=== PATIENT | male | born 1975 | race African-American/Black ===

== ENCOUNTER 2020-05-21 10:36 | Observation (INO) ==
[2020-05-21] MEDS ORDERED: hydrALAZINE 20 MG/1 ML VIAL IV STA (10:58)
[2020-05-21 11:17] LABS: Basophils % 0.4 % (0.0-0.8); Eosinophils # 0.1 10*3/uL (0.0-0.87); Eosinophils % 0.7 % (0.00-10.9); Hematocrit 37.2 VOL% (42.0-52.0); Hemoglobin 12.2 GM/DL (14.0-18.0); Immature Granulocytes % 0.4 %; Immature Granulocytes Absolute 0.03 #; Lymphocytes # 2.3 10*3/uL (1.4-4.0); Lymphocytes % 26.8 % (21.2-54.2); Mean Corpuscular HGB Conc 32.8 GM/DL (32-36); Mean Platelet Volume 9.6 FL (9.6-12.0); Neutrophils % 63.7 % (38.7-73.9); Platelet Count 298 T/CUMM (130-400); Red Cell Distribution Width 13.1 % (9.3-17.3); White Blood Count 8.5 T/CUMM (4-12)
[2020-05-21 11:30] LABS: PT Patient Result 10.3 SECS (9.8-11.9); Partial Thromboplastin Time 32.1 SECS (23.9-33.8)
[2020-05-21 11:43] LABS: Alanine Aminotransferase 30 U/L (16-61); Alkaline Phosphatase 102 U/L (45-117); Aspartate Amino Transferase 25 U/L (0-37); Bilirubin,Total < 0.39 MG/DL (0.2-1.0); Blood Urea Nitrogen 9 MG/DL (7-18); Calcium 8.2 MG/DL (8.5-10.1); Estimated Glom Filtration Rate 158 ML/MIN; Ferritin 50.9 ng/ml (26-388); Glucose 107 MG/DL (74-106); Osmolality,Calculated 271.8 MOS/KG (273-304); Total Protein 6.9 G/DL (6.4-8.3); Troponin I < 0.015 NG/ML (0.00-0.045)
[2020-05-21 12:40] LABS: Apearance,Urine CLEAR (Clear); Bilirubin,Urine Negative (Negative); Blood, Urine Negative (Negative); Glucose,Urine (UA) Negative (Negative); Ketones,Urine Negative (Negative); Nitrite,Urine Negative (Negative); Protein,Urine Negative; RBC,Urine <1 /HPF (0-4); Urine Color Yellow (Yellow); Urine Specific Gravity 1.009 (1.001-1.035); Urine Urobilinogen < 2.0 EU/DL (0.2-1.0); WBC,Urine <1 /HPF (0-6)
[2020-05-21] MEDS ORDERED: MAGNESIUM SULF RIDER 4 GM in PREMIX 1 EACH IV PRN (12:46)
[2020-05-21] MEDS ORDERED: ONDANSETRON 4 MG/2 ML VIAL IV PRN (12:46)
[2020-05-21] MEDS ORDERED: diphenhydrAMINE CAP 25 MG CAPSULE PO PRN (12:46)
[2020-05-21] MEDS ORDERED: ALUMINUM/MAGNES/SIMETH MAX STR 30 ML UDCUP PO PRN (12:46)
[2020-05-21] MEDS ORDERED: ZALEPLON 5 MG CAPSULE PO PRN (12:46)
[2020-05-21] MEDS ORDERED: MAGNESIUM SULF RIDER 2 GM in PREMIX 1 EACH IV PRN (12:46)
[2020-05-21] MEDS ORDERED: POTASSIUM CHLORIDE 20 MEQ TABLET PO PRN (12:46)
[2020-05-21 12:49] LABS: Barbiturates Screen,Urine Negative (Negative); Benzodiazepines Screen,Urine Negative (Negative); Cannabinoid Screen,Urine Negative (Negative); Opiate Screen,Urine Negative (Negative); Phencyclidine Screen,Urine Negative (Negative)
[2020-05-21] MEDS ORDERED: CLORAZEPATE 3.75 MG TABLET PO PRN (12:50)
[2020-05-21] MEDS ORDERED: ALBUTEROL 2.5 MG/3 ML NEB RESP TX PRN (12:50)
[2020-05-21] MEDS ORDERED: FUROSEMIDE 40 MG TABLET PO PRN (12:50)
[2020-05-21] MEDS ORDERED: GLUCAGON 1 MG VIAL IM PRN (12:52)
[2020-05-21] MEDS ORDERED: DEXTROSE 50% 25 GM/50 ML VIAL IV PRN (12:52)
[2020-05-21] MEDS: AMIODARONE 200 MG TABLET PO SCH ×2 (15:25→21:06)
[2020-05-21] MEDS: INSULIN REGULAR 100 UNIT/ML SUBCUT SCH ×2 (15:50→21:03)
[2020-05-21] MEDS ORDERED: ENOXAPARIN 40 MG/0.4 ML SYRINGE SUBCUT SCH (16:00)
[2020-05-21] MEDS: metFORMIN 500 MG TABLET PO SCH (16:30)
[2020-05-21] MEDS ORDERED: AMITRIPTYLINE 25 MG TABLET PO SCH (21:00)
[2020-05-21] MEDS: busPIRone 10 MG TABLET PO SCH (21:06)
[2020-05-21] MEDS: SACUBITRIL/VALSARTAN 49-51 MG TABLET PO SCH (21:06)
[2020-05-21] MEDS: ASCORBIC ACID 500 MG TABLET PO SCH (21:07)
[2020-05-21] MEDS: MOMETASONE/FORMOTEROL 200-5 INHALER 8.8 GM INH SCH (21:07)
[2020-05-22 06:15] LABS: Basophils % 0.3 % (0.0-0.8); Eosinophils # 0.1 10*3/uL (0.0-0.87); Eosinophils % 0.8 % (0.00-10.9); Hemoglobin 11.7 GM/DL (14.0-18.0); Immature Granulocytes % 0.4 %; Immature Granulocytes Absolute 0.03 #; Lymphocytes # 2.5 10*3/uL (1.4-4.0); Mean Corpuscular HGB Conc 31.6 GM/DL (32-36); Mean Corpuscular Volume 93.4 FL (87-102); Mean Platelet Volume 10.1 FL (9.6-12.0); Neutrophils % 59.5 % (38.7-73.9); Platelet Count 304 T/CUMM (130-400); Red Blood Count 3.96 MC/CUMM (3.8-5.5); Red Cell Distribution Width 13.2 % (9.3-17.3)
[2020-05-22 06:39] LABS: Calcium 8.5 MG/DL (8.5-10.1); Osmolality,Calculated 273.7 MOS/KG (273-304)
[2020-05-22 06:44] LABS: Albumin 3.1 G/DL (3.4-5.0); Bilirubin,Total 0.4 MG/DL (0.2-1.0); Calcium 8.5 MG/DL (8.5-10.1); Osmolality,Calculated 273.7 MOS/KG (273-304); Total Protein 6.9 G/DL (6.4-8.3)
[2020-05-22] MEDS: INSULIN REGULAR 100 UNIT/ML SUBCUT SCH (07:21)
[2020-05-22 07:38] VITALS: BP 156/87
[2020-05-22] MEDS: SACUBITRIL/VALSARTAN 49-51 MG TABLET PO SCH (08:18)
[2020-05-22] MEDS: ASCORBIC ACID 500 MG TABLET PO SCH (08:22)
[2020-05-22] MEDS: AMIODARONE 200 MG TABLET PO SCH (08:22)
[2020-05-22] MEDS: busPIRone 10 MG TABLET PO SCH (08:29)
[2020-05-22] MEDS: metFORMIN 500 MG TABLET PO SCH (08:29)
[2020-05-22] MEDS: MOMETASONE/FORMOTEROL 200-5 INHALER 8.8 GM INH SCH (08:29)
[2020-05-22] MEDS ORDERED: PANTOPRAZOLE 40 MG TABLET PO SCH (09:00)
[2020-05-22] MEDS ORDERED: ASPIRIN EC 81 MG TABLET PO SCH (09:00)
[2020-05-22] MEDS ORDERED: ESCITALOPRAM 10 MG TABLET PO SCH (09:00)
[2020-05-22] MEDS ORDERED: FERROUS SULFATE 325 MG TABLET PO SCH (09:00)
[2020-05-22] MEDS ORDERED: POTASSIUM CHLORIDE 20 MEQ TABLET PO ONE (09:37)
[2020-05-28] MEDS ORDERED: AMIODARONE 200 MG TABLET PO SCH (09:00)
[2020-06-04] MEDS ORDERED: AMIODARONE 200 MG TABLET PO SCH (09:00)
== END 2020-05-22 11:28 | disposition home or self-care (01) ==
LOC: N.EDINP 10:36 → N.ED 10:36 → N.EDINP 13:54 → N.TELEN 14:05
PROVIDERS: ADMIT Internal Medicine Cardiovascular Disease; ATTEND Internal Medicine Cardiovascular Disease

== ENCOUNTER 2021-07-20 23:20 | Observation (INO) ==
[2021-07-21 01:55] LABS: Basophils % 0.2 % (0.0-0.8); Eosinophils % 0.2 % (0.00-10.9); Hematocrit 29.7 VOL% (42.0-52.0); Hemoglobin 9.9 GM/DL (14.0-18.0); Immature Granulocytes % 0.6 %; Immature Granulocytes Absolute 0.04 #; Lymphocytes # 1.6 10*3/uL (1.4-4.0); Lymphocytes % 24.7 % (21.2-54.2); Mean Corpuscular HGB Conc 33.3 GM/DL (32-36); Mean Platelet Volume 9.5 FL (9.6-12.0); Monocytes % 14.5 % (1.7-12.7); NRBC # 0.02 10*3/uL; Neutrophils % 59.8 % (38.7-73.9); Platelet Count 262 T/CUMM (130-400); Red Blood Count 3.03 MC/CUMM (3.8-5.5); Red Cell Distribution Width 16.8 % (9.3-17.3); White Blood Count 6.5 T/CUMM (4-12)
[2021-07-21 02:22] LABS: Alanine Aminotransferase 61 U/L (16-61); Albumin 2.8 G/DL (3.4-5.0); Alkaline Phosphatase 161 U/L (45-117); Aspartate Amino Transferase 128 U/L (0-37); Bilirubin,Total < 0.39 MG/DL (0.20-1.00); Blood Urea Nitrogen 16 MG/DL (7-18); Calcium 8.8 MG/DL (8.5-10.1); Carbon Dioxide 25 MMOL/L (21-32); Estimated Glom Filtration Rate 179 ML/MIN; Glucose 111 MG/DL (74-106); Potassium 3.8 MMOL/L (3.5-5.1); Sodium 136 MMOL/L (136-145); Total Protein 6.7 G/DL (6.4-8.2)
[2021-07-21] MEDS ORDERED: MAGNESIUM SULF RIDER 2 GM/50 ML PREMIX IV STA (02:35)
[2021-07-21] MEDS ORDERED: SODIUM CHLORIDE 0.9% 1,000 ML IV STA (03:07)
[2021-07-21] MEDS ORDERED: DEXTROSE 50% 25 GM/50 ML VIAL IV PRN (05:06)
[2021-07-21] MEDS ORDERED: ONDANSETRON 4 MG/2 ML VIAL IV PRN (05:06)
[2021-07-21] MEDS ORDERED: GLUCAGON 1 MG VIAL IM PRN (05:06)
[2021-07-21 07:38] LABS: Hepatitis B Core IgM Quant 0.13 Index; Hepatitis B Surface Ag Quant < 0.10 Index; Hepatitis B Surface Ag Result Non-Reactive (NonReactive); Hepatitis C Virus Ab Quant < 0.02 Index; Hepatitis C Virus Ab Result Non-Reactive (NonReactive)
[2021-07-21] MEDS: PANTOPRAZOLE 40 MG VIAL IV SCH ×2 (09:21→20:37)
[2021-07-21] MEDS: VANCOMYCIN 50 MG/ML 60 ML/BOTTLE PO SCH ×3 (09:22→17:02)
[2021-07-21] MEDS: LACTATED RINGERS 1,000 ML IV SCH ×2 (10:31→15:05)
[2021-07-21 10:38] LABS: Bilirubin,Urine Negative (Negative); Blood, Urine Negative (Negative); Glucose,Urine (UA) Negative (Negative); Hyaline Casts,Urine 4 /LPF (0-3); Ketones,Urine 5 mg/dL (Negative); Mucus,Urine Occasional /LPF (Occasional); Nitrite,Urine Negative (Negative); Protein,Urine Negative; RBC,Urine 1 /HPF (0-4); Urine Appearance CLEAR (Clear); Urine Color Yellow (Yellow); Urine Specific Gravity 1.009 (1.001-1.035); Urine Urobilinogen < 2.0 EU/DL (0.2-1.0)
[2021-07-21 11:25] LABS: Barbiturates Screen,Urine Negative (Negative); Benzodiazepines Screen,Urine Negative (Negative); Cannabinoid Screen,Urine Negative (Negative); Opiate Screen,Urine Negative (Negative); Phencyclidine Screen,Urine Negative (Negative)
[2021-07-21] MEDS: CHOLESTYRAMINE 4 GM PACK PO SCH (22:38)
[2021-07-22] MEDS: VANCOMYCIN 50 MG/ML 60 ML/BOTTLE PO SCH ×5 (00:53→23:04)
[2021-07-22 05:36] LABS: Basophils % 0.3 % (0.0-0.8); Eosinophils % 0.5 % (0.00-10.9); Hematocrit 26.7 VOL% (42.0-52.0); Immature Granulocytes % 0.5 %; Immature Granulocytes Absolute 0.02 #; Lymphocytes # 1.4 10*3/uL (1.4-4.0); Lymphocytes % 35.7 % (21.2-54.2); Mean Corpuscular HGB Conc 33.7 GM/DL (32-36); Mean Corpuscular Volume 97.4 FL (87-102); Mean Platelet Volume 9.5 FL (9.6-12.0); Monocytes % 14.3 % (1.7-12.7); Neutrophils % 48.7 % (38.7-73.9); Platelet Count 276 T/CUMM (130-400); Red Blood Count 2.74 MC/CUMM (3.8-5.5); Red Cell Distribution Width 16.7 % (9.3-17.3)
[2021-07-22] MEDS: LACTATED RINGERS 1,000 ML IV SCH ×2 (06:09→16:53)
[2021-07-22 06:14] LABS: Albumin 2.2 G/DL (3.4-5.0); Bilirubin,Total 0.6 MG/DL (0.20-1.00); Calcium 8.7 MG/DL (8.5-10.1); Osmolality,Calculated 279.3 MOS/KG (273-304); Potassium 3.6 MMOL/L (3.5-5.1); Risk Ratio 2.06; Total Protein 5.7 G/DL (6.4-8.2); VLDL Cholesterol 14.4 MG/DL
[2021-07-22] MEDS: PANTOPRAZOLE 40 MG VIAL IV SCH ×2 (09:51→21:06)
[2021-07-22] MEDS: CHOLESTYRAMINE 4 GM PACK PO SCH ×2 (09:52→23:03)
[2021-07-22] MEDS ORDERED: MAGNESIUM SULF RIDER 2 GM/50 ML PREMIX IV ONE (10:17)
[2021-07-23] MEDS: LACTATED RINGERS 1,000 ML IV SCH (03:39)
[2021-07-23 04:57] LABS: Basophils % 0.2 % (0.0-0.8); Eosinophils % 0.4 % (0.00-10.9); Hematocrit 25.9 VOL% (42.0-52.0); Hemoglobin 8.6 GM/DL (14.0-18.0); Immature Granulocytes % 0.6 %; Immature Granulocytes Absolute 0.03 #; Lymphocytes # 1.7 10*3/uL (1.4-4.0); Mean Corpuscular HGB Conc 33.2 GM/DL (32-36); Mean Corpuscular Volume 98.5 FL (87-102); Mean Platelet Volume 9.4 FL (9.6-12.0); Monocytes % 14.4 % (1.7-12.7); Neutrophils % 50.4 % (38.7-73.9); Platelet Count 292 T/CUMM (130-400); Red Blood Count 2.63 MC/CUMM (3.8-5.5); Red Cell Distribution Width 16.7 % (9.3-17.3)
[2021-07-23 05:28] LABS: Albumin 2.3 G/DL (3.4-5.0); Bilirubin,Total 0.4 MG/DL (0.20-1.00); Calcium 8.7 MG/DL (8.5-10.1); Osmolality,Calculated 274.5 MOS/KG (273-304); Potassium 3.4 MMOL/L (3.5-5.1); Total Protein 5.6 G/DL (6.4-8.2)
[2021-07-23] MEDS: POTASSIUM CHLORIDE 20 MEQ TABLET PO PRN ×3 (05:38→09:59)
[2021-07-23] MEDS: VANCOMYCIN 50 MG/ML 60 ML/BOTTLE PO SCH ×2 (05:38→11:07)
[2021-07-23] MEDS: PANTOPRAZOLE 40 MG VIAL IV SCH (08:44)
[2021-07-23] MEDS: CHOLESTYRAMINE 4 GM PACK PO SCH (10:01)
[2021-07-23] MEDS ORDERED: POTASSIUM CHLORIDE 20 MEQ TABLET PO ONE (11:40)
[2021-07-23 12:23] VITALS: BP 133/74
== END 2021-07-23 13:30 | disposition home or self-care (01) ==
LOC: N.EDINP 23:20 → N.ED 23:20 → N.3E 07-21 06:16
PROVIDERS: ADMIT Internal Medicine; ATTEND Internal Medicine